=== PATIENT | male | born 1945 | race Caucasian/White ===

== ENCOUNTER → 2021-05-19 | Outpatient (CLI) | payer OTHER ==
--- NOTE | 2021-05-19 10:46 | 2DMMODE ---
[facility] [place] [address] 2 D/M-MODE ECHOCARDIOGRAM Name: CHARANJIT MORALES Room #: REG [facility] Bijan.#: [id number] Admission: 05/19/21 Attend Phys: Lee Griggs Discharge: Date of : 45 Report #: [id number] THIS REPORT FOR: cc: Arvind Sarmiento MD, MD, MD [facility] ~ APPROVED REPORT Study performed: 05/19/2021 09:56:06 EXAM: Comprehensive 2D, Doppler, and color-flow Echocardiogram Patient Location: Out-Patient Status: routine BSA: 2.04 HR: 80 bpm BP: 134/76 mmHg Rhythm: Sinus/Arrhythmia Other Information Study Quality: Good Indications History of Afib/ablation. 2D Dimensions IVSd: 9.70 (7-11mm) LVOT Diam: 22.60 (18-24mm) LVDd: 47.34 mm PWd: 10.30 (7-11mm) Ascending Ao: 30.08 (22-36mm) LVDs: 30.99 (25-40mm) Left Atrium: 38.58 (27-40mm) Aortic Root: 34.46 mm Volumes Left Atrial Volume (Systole) Single Plane 4CH: 74.47 mL Single Plane 2CH: 64.67 mL LA ESV Index: 38.00 mL/m2 Aortic Valve AoV Peak Jeff.: 1.27 m/s AO Peak Gr.: 6.42 mmHg LVOT Max P.56 mmHg LVOT Max V: 0.94 m/s WANDA Vmax: 2.99 cm2 [facility] [address] [place] [address] 2 D/M-MODE ECHOCARDIOGRAM Name: CHARANJIT MORALES Room #: REG CL PhaniPhani#: [id number] Admission: 05/19/21 Attend Phys: Lee Subramanian Discharge: Date of : 45 Report #: [id number] Mitral Valve E/A Ratio: 0.9 MV Decel. Time: 302.10 ms MV E Max Jeff.: 0.39 m/s MV A Jeff.: 0.44 m/s MV PHT: 87.61 ms IVRT: 107.27 ms Pulmonary Valve PV Peak Jeff.: 1.07 m/s PV Peak Gr.: 4.56 mmHg Pulmonary Vein P Vein S: 0.63 m/s P Vein D: 0.31 m/s P Vein S/D Ratio: 2.03 Tricuspid Valve TR Peak Jeff.: 2.38 m/s RAP Estimate: 5.00 mmHg TR Peak Gr.: 23.00 mmHg PA Pressure: 28.00 mmHg Left Ventricle The left ventricle is normal size. There is normal LV segmental wall motion. There is normal left ventricular wall thickness. Left ventricular systolic function is normal. LVEF is 55-60%. Mild diastolic dysfunction is present (impaired relaxation pattern). Right Ventricle The right ventricle is normal size. The right ventricular systolic function is normal. Atria Left atrium is mildly dilated. The right atrium size is normal. Aortic Valve The aortic valve is normal in structure. No aortic regurgitation is present. There is no aortic valvular stenosis. Mitral Valve The mitral valve is normal in structure. Trace mitral regurgitation. No evidence of mitral valve stenosis. Tricuspid Valve The tricuspid valve is normal in structure. Mild tricuspid [facility] [place] [address] 2 D/M-MODE ECHOCARDIOGRAM Name: ANDERWCHARANJIT Room #: REG [facility].#: [id number] Admission: 05/19/21 Attend Phys: Lee Subramanian Discharge: Date of : 45 Report #: [id number] regurgitation. Estimated PAP is 28mmHg. Pulmonic Valve The pulmonary valve is normal in structure. Trace pulmonic regurgitation. Great Vessels The aortic root is normal in size. The ascending aorta is normal in size. IVC is normal in size and collapses >50% with inspiration. Pericardium There is no pericardial effusion. <Conclusion> Normal left ventricle size/wall thickness central ejection fraction 60% Normal right ventricle size/function Left atrium mildly dilated Normal aortic/mitral valve structure and function Mild tricuspid valve insufficiency Pulmonary systolic pressure estimated 28 mmHg No pericardial effusion Normal aortic root size. <ELECTRONICALLY SIGNED> By: Arvind De La O MD, [facility] 05/19/216 45 45 Arvind De La O MD, [facility] /INF
--- NOTE | 2021-05-19 11:28 | EKG ---
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
== END ==
LOC: CV 09:30
PROVIDERS: ATTEND Chiropractor
DX: I07.1 Rheumatic tricuspid insufficiency (principal); I48.91 Unspecified atrial fibrillation; I25.10 Atherosclerotic heart disease of native coronary artery without angina pectoris